=== PATIENT | male | born 1950 | race Caucasian/White ===

== ENCOUNTER 2021-09-05 09:06 | Outpatient (CLI) | payer MEDICARE ==
[2021-09-05] MEDS ORDERED: Magnevist 469MG/ML 20 ML VIAL ONE (10:30)
== END 2021-09-05 09:07 | disposition home or self-care (01) ==
LOC: BICMRI 09:06
PROVIDERS: ATTEND Specialist
DX: G45.9 Transient cerebral ischemic attack, unspecified (principal)
CPT/HCPCS: 70553; 82565; A9579